=== PATIENT | male | born 1950 | race Caucasian/White ===

== ENCOUNTER 2016-10-15 13:01 | Day surgery (SDC) | payer MEDICARE ==
[~2016-10-15] VITALS: Ht 172.7 cm; Wt 80.0 kg
[~2016-10-15 13:01] MED LIST: 0.9% Sodium Chloride 1,000 ML IV SCH; ALBU8.5H2 INH; ASCO500C6 PO; ATOR20TA PO; BECL8.7A6 INHALATION; CALC500T9 PO; CHOL10008 PO; CITA20TA11 PO; DESO15CR25 TOP; FLUT16SP; GUAI600T2 PO; IBUP1CAP13 PO; IBUP1TAB10 PO; IBUP800T28 PO; IPRA3AMP IH; MULT-666 PO; PANT40TA3 PO; SULF1TAB35 PO; Sodium Biphos-Phos 133 mL Enema RECTAL PRN; Sodium Chloride LOK Flush 10 mL Syringe IV PRN; TERA10CA5 PO; fentaNYL-PF 50 mCg/mL 2 mL Inj IVPUSH PRN
[2016-10-15 13:49] VITALS: BP 122/83; PULSE 86; RESP 14; O2SAT 94
[2016-10-15 14:44] VITALS: BP 111/79; PULSE 91; RESP 16; O2SAT 93
[2016-10-15 15:13] VITALS: BP 113/79; PULSE 95; RESP 16; O2SAT 93
--- NOTE | 2016-10-15 15:29 | ENDO ---
[address] [address] ENDOSCOPY PROCEDURE PATIENT: ANA HARMON : 1950 MR#: [id number] ADMIT: 10/15/2016 JOB ID: [id number] DATE OF SERVICE: 10/15/2016 PREPROCEDURE DIAGNOSIS: Melena. POSTPROCEDURE DIAGNOSIS: Pancolitis, severe. PROCEDURE: Colonoscopy with biopsies. ENDOSCOPIST: Rad Hoover MD. MEDICATIONS: Versed 5 mg, fentanyl 100 mcg in incremental doses. INDICATIONS: The patient is a 66-year-old man who last underwent colonoscopy in 2007, which was reportedly normal. He was hospitalized in July with a one month history of melena. He also had hematuria. He underwent upper endoscopy during that hospitalization which demonstrated gastritis, and he was placed on Protonix. He was having explosive diarrhea, with blood on the toilet paper which then tapered off to only being blood on the toilet paper with bowel movements but no grossly melenic stools. He denied abdominal pain. After discussion of risks and benefits, he agreed to proceed with colonoscopy. FINDINGS: He had fairly severe confluent pancolitis involving the rectum as well. No mass lesions were identified. DESCRIPTION OF PROCEDURE: Procedural sedation was achieved. The patient was connected to hemodynamic monitoring, pulse oximetry, capnography. After digital rectal exam, the PCF-H180AL colonoscope was passed under visualization until the ileocecal valve was visualized and photo documented. At the hepatic flexure, the colon was very friable and had linear mucosal tears just from insufflation, so I did not want to push aggressively to get the scope beyond the ileocecal valve into the cecum or into the terminal ileum. Therefore, the appendiceal orifice was not visualized, and terminal ileoscopy was not performed, but the ileocecal valve was visualized. There was severe confluent pancolitis. There were no skip areas. There were ragged linear ulcerations with a small amount of active bleeding. No mass lesions were seen. The inflammatory process was involving the entire rectum as well. Because of the degree of inflammation, retroflexion was not performed. Random cold forceps biopsies were obtained throughout the colon, including from the ascending colon, transverse colon and sigmoid colon and sent for permanent pathology. The scope was withdrawn and the procedure terminated. He tolerated the entire procedure well. RECOMMENDATIONS: He will follow up with me in surgery clinic to go over his biopsy results in one week. He will then likely be referred urgently to Gastroenterology to start on treatment, as I suspect that he will be found to have ulcerative colitis.
--- NOTE | 2016-10-17 15:16 | PATH ---
SURGICAL PATHOLOGY Attending Physician:Fauzia Camilo CASE STATUS: Signed Out PATIENT NAME: ANA HARMON PID: [id number] : 1950 DATE COLLECTED:10/15/2016 00:00 SPECIMEN: Colon, Biopsy CLINICAL HISTORY: A: RANDOM COLON BIOPSIES MELENA, GASTRITIS, DIARRHEA COLONOSCOPY: SEVERE CONFLUENT PANCOLITIS FINAL DIAGNOSIS: 1.RANDOM COLON BIOPSIES: CHRONIC COLITIS WITH MODERATE ACTIVITY, SEE COMMENT. Negative for dysplasia and malignancy. ICD10 code K52.9 NOTE: This histologic pattern is suggestive of inflammatory bowel disease (ulcerative colitis). The differential diagnosis includes infection and medication toxicity. Clinical and endoscopic correlation is necessary for a definitive diagnosis. GROSS DESCRIPTION: The specimen is received in one formalin filled container labeled with the patient's name, sublabeled "random colon" and consists of 4 portions of tissue which aggregate to 0.4 x 0.4 x 0.2 CM. The specimen is entirely submitted in one cassette. 10/16/2016 [facility] MICRO DESCRIPTION: Sections are of colonic mucosal fragments, all of which are involved by an inflammatory process characterized by hypercellularity of the lamina propria (mononuclear cells, eosinophils, neutrophils), cryptitis and crypt abscesses, basal lymphoplasmacytosis, and crypt architecture distortion. No granulomas are seen. Please see diagnosis. ICD-9 CODES: CPT CODES: 1: 23179 Electronically Signed Out Carmelita Claire MD [facility] Pathology [facility] [address], [place] [address] Technical component performed at [facility], [address] [place] [address] Ave[address], [place], [address]
[2017-01-16] MEDS ORDERED: ATOR20TA PO (15:31)
[2017-01-16] MEDS ORDERED: PRE20 PO (15:31)
[2017-01-16] MEDS ORDERED: FLUT15.88 NS (15:31)
== END 2016-10-15 23:59 | disposition home or self-care (01) ==
LOC: END 13:01
PROVIDERS: ATTEND Student in an Organized Health Care Education/Training Program
DX: K92.1 Melena (principal); K52.9 Noninfective gastroenteritis and colitis, unspecified; J45.909 Unspecified asthma, uncomplicated; F41.9 Anxiety disorder, unspecified; N41.1 Chronic prostatitis; F32.9 Major depressive disorder, single episode, unspecified; B18.2 Chronic viral hepatitis C; M06.9 Rheumatoid arthritis, unspecified; Z87.891 Personal history of nicotine dependence
CPT/HCPCS: 45380; G0500; J2250; J7030

== ENCOUNTER 2017-01-19 10:15 | Day surgery (SDC) | payer MEDICARE ==
[~2017-01-19] VITALS: Ht 172.7 cm; Wt 81.0 kg
[~2017-01-19 10:15] MED LIST changes: +0.9% Sodium Chloride 1,000 ML IV PRN; -0.9% Sodium Chloride 1,000 ML IV SCH; -DESO15CR25 TOP; +FLUT15.88 NS; -FLUT16SP; -GUAI600T2 PO; -PANT40TA3 PO; +PRE20 PO; -SULF1TAB35 PO; -Sodium Biphos-Phos 133 mL Enema RECTAL PRN
[2017-01-19 12:08] VITALS: BP 110/77; PULSE 79; RESP 14; O2SAT 95
[2017-01-19 12:13] VITALS: BP 151/91; PULSE 79; RESP 14; O2SAT 94
[2017-01-19] MEDS ORDERED: ASPI325T32 PO (12:13)
[2017-01-19 12:23] VITALS: BP 134/91; PULSE 79; RESP 16; O2SAT 96
[2017-01-19 12:33] VITALS: BP 135/94; PULSE 74; RESP 14; O2SAT 96
--- NOTE | 2017-01-19 13:17 | PCM.ENDCOL ---
Colonoscopy Date of Service: Jan 19, 2017 Physician Oniel Rosales MD Pre Procedure Diagnosis: Colitis Post Procedure Dx & Findings: Colitis Procedure Colonoscopy PROCEDURE IN DETAIL: Prep fair Withdrawal time 10 minutes After unremarkable rectal examination the Olympus video colonoscope was inserted patient's anal canal and was advanced to cecum. Landmarks were identified including the ileocecal valve and appendiceal orifice. Scope advanced to the terminal ileum which showed normal villous structures without any ulcer or mass erosion. Advanced 10 cm. Scope was withdrawn systematically. Throughout the colon from the cecum to the rectum, evidence of redness edema decreased haustration noted and biopsies obtained. The inflammation or colitis on the right side seems to be mild. As we went further into the left colon, redness edema became less intense. The left side, we were able to see vascular patterns. That there is evidence of quiescent colitis in the rectum, the visualized colonic mucosa showed healthy shiny mucosa with normal healthy-appearing vasculature. In the rectum retroflexion was done which showed hemorrhoids. Anal canal was inspected carefully on the way out and hemorrhoids noted. Impression Colitis however. This is quite an unusual pattern. Rectum being spared and the inflammation seemed to get worse on the right side in the left. Terminal ileum was completely normal. Hemorrhoids Recommendation Await biopsies. Presedation Assessment Risks and Benefits Informed consent was obtained from the patient after all risks and benefits including but not limited to drug reaction, infection, pain, bleeding, perforation, as well as alternatives were discussed. Patient monitoring Continuous pulse oximetry, cardiac monitoring, blood pressure monitoring, IV access, and oxygen at 2L per nasal cannula. Periprocedural Fentanyl: Fentanyl 100mcg Incrementally Midazolam: Midazolam 4mg Incrementally Complications There were no periprocedural complications identified. Post Procedure Plan Post Procedure Recommendations 1. Restrict activities today. 2. Resume normal activities in the morning. 3. Resume medications. 4. Patient informed of normal post procedure side effects as bloating, drowsiness, blood streaking in the stool. 5. average risk CRCS. If colon polyps come back as: -Hyperplastic- can repeat colonoscopy in 10 years -Tubular adenoma- repeat colonoscopy in 5 years -Tubulovillous/villous adenoma- repeat colonoscopy in 3 years -If any dysplasia- return to clinic as soon as possible 6. Please don't hesitate to call me with any questions. Oniel Rosales MD Jan 19, 2017 13:16
--- NOTE | 2017-01-20 10:57 | PATH ---
SURGICAL PATHOLOGY Attending Physician:Oniel Rosales M.D. CASE STATUS: Signed Out PATIENT NAME: ANA HARMON PID: [id number] : 1950 DATE COLLECTED:01/19/2017 20:13 SPECIMEN: 1: Colon, Biopsy 2: Colon, Biopsy 3: Rectum, Biopsy CLINICAL HISTORY: RED SPLOTCHING 1). RANDOM COLON 2). LEFT COLON 3). RECTUM FINAL DIAGNOSIS: 1. Random Colon Biopsies: Diffuse severe chronic active colitis with cryptitis and crypt abscesses. Reactive epithelial changes, but negative for dysplasia and malignancy. 2. Left Colon Biopsies: Chronic colitis, focally active with focal crypt abscess. Reactive epithelial changes, but negative for dysplasia and malignancy. 3. Rectum Biopsy: Changes of chronic, focally active with focal cryptitis. Negative for dysplasia and malignancy. ICD10: K52.9 GROSS DESCRIPTION: The specimen is received in three formalin filled containers labeled with the patient's name. 1). The specimen is sublabeled "random colon" and consists of 5 portions of tissue which aggregate to 0.4 x 0.4 x 0.3 CM. The specimen is entirely submitted in cassette 1A. 2). The specimen is sublabeled "left colon" and consists of 3 portions of tissue which aggregate to 0.3 x 0.3 x 0.2 CM. The specimen is entirely submitted in cassette 2A. 3). The specimen is sublabeled "rectum" and consists of 2 portions of tissue which aggregate to 0.3 x 0.3 x 0.2 CM. The specimen is entirely submitted in cassettes 3A. 01/19/2017 [facility] ICD-9 CODES: CPT CODES: 1: 13448 2: 41850 3: 61227 Electronically Signed Out Ron Javed MD [facility] Pathology [facility] [address] [facility], [place] [address] Technical component performed at [facility], [facility] [address], [place], [address]
== END 2017-01-19 23:59 | disposition home or self-care (01) ==
LOC: END 10:15
PROVIDERS: ATTEND Internal Medicine
DX: K52.9 Noninfective gastroenteritis and colitis, unspecified (principal); K62.89 Other specified diseases of anus and rectum; K64.8 Other hemorrhoids; J45.909 Unspecified asthma, uncomplicated; F41.9 Anxiety disorder, unspecified; N41.1 Chronic prostatitis; F32.9 Major depressive disorder, single episode, unspecified; Z87.440 Personal history of urinary (tract) infections; Z79.52 Long term (current) use of systemic steroids; Z79.51 Long term (current) use of inhaled steroids
CPT/HCPCS: 45380; G0500; J7030

== ENCOUNTER 2017-05-18 07:10 | Day surgery (SDC) | payer MEDICARE ==
[~2017-05-18] VITALS: Ht 172.7 cm; Wt 79.8 kg
[~2017-05-18 07:10] MED LIST changes: -0.9% Sodium Chloride 1,000 ML IV PRN; +0.9% Sodium Chloride 1,000 ML IV SCH; +ASPI325T32 PO; -ATOR20TA PO; +BUDE3CAP7 PO; -CALC500T9 PO; -FLUT15.88 NS; -IBUP1CAP13 PO; -IBUP1TAB10 PO; -IPRA3AMP IH; +MESA1.2T2 PO; +NITR100 PO; -PRE20 PO
[2017-05-18 07:40] VITALS: BP 123/86; PULSE 79; RESP 16; O2SAT 94
[2017-05-18 08:31] VITALS: BP 108/71; PULSE 79; RESP 16; O2SAT 93
--- NOTE | 2017-05-18 08:31 | PCM.ENDCOL ---
Colonoscopy Date of Service: May 18, 2017 Physician Oniel Rosales MD Indication for Procedure Ulcerative colitis Post Procedure Dx & Findings: quiescent colitis rectal polyp hemorrhoids Procedure Colonoscopy PROCEDURE IN DETAIL: Prep adequate Withdrawal time 13 minutes After unremarkable rectal examination the Olympus video colonoscope was inserted patient's anal canal and was advanced to cecum. Landmarks were identified including the ileocecal valve and appendiceal orifice. Scope was withdrawn systematically. Visualized colonic mucosa showed slightly decreased vasculature with some edema. However an significant portion of the colonic mucosa show healthy shiny mucosa with normal healthy-appearing vasculatures. Random biopsies were obtained from the cecum to the rectum. In the rectum, there was a 1 mm polyp was removed completely using cold forceps. In the rectum retroflexion was done which showed hemorrhoids. Anal canal was inspected carefully on the way out and hemorrhoids noted. Impression quiescent colitis rectal polyp Hemorrhoids History of ulcerative colitis 4 years ago. Recommendation Follow up in GI clinic. Presedation Assessment Risks and Benefits Informed consent was obtained from the patient after all risks and benefits including but not limited to drug reaction, infection, pain, bleeding, perforation, as well as alternatives were discussed. Patient monitoring Continuous pulse oximetry, cardiac monitoring, blood pressure monitoring, IV access, and oxygen at 2L per nasal cannula. Periprocedural Fentanyl: Fentanyl 50mcg Incrementally Midazolam: Midazolam 4mg Incrementally Complications There were no periprocedural complications identified. Post Procedure Plan Post Procedure Recommendations 1. Restrict activities today. 2. Resume normal activities in the morning. 3. Resume medications. 4. Patient informed of normal post procedure side effects as bloating, drowsiness, blood streaking in the stool. 5. average risk CRCS. If colon polyps come back as: -Hyperplastic- can repeat colonoscopy in 10 years -Tubular adenoma- repeat colonoscopy in 5 years -Tubulovillous/villous adenoma- repeat colonoscopy in 3 years -If any dysplasia- return to clinic as soon as possible 6. Please don't hesitate to call me with any questions. Oniel Rosales MD May 18, 2017 08:30
[2017-05-18 08:41] VITALS: BP 98/64; PULSE 75; RESP 16; O2SAT 94
[2017-05-18 08:50] VITALS: BP 98/64; PULSE 87; RESP 16; O2SAT 95
[2017-05-18 08:58] VITALS: BP 119/80; PULSE 70; RESP 16; O2SAT 95
--- NOTE | 2017-05-20 09:43 | PATH ---
SURGICAL PATHOLOGY Attending Physician:Oniel Rosales M.D. CASE STATUS: Signed Out PATIENT NAME: ANA HARMON PID: [id number] : 1950 DATE COLLECTED:05/18/2017 14:59 SPECIMEN: 1: Colon, Biopsy 2: Rectum, Biopsy CLINICAL HISTORY: PHX OF ULCERATIVE COLITIS 1). RANDOM COLON BIOPSY 2). RECTAL POLYP X1 FINAL DIAGNOSIS: 1.RANDOM COLON BIOPSY: PATCHY CHRONIC COLITIS, MILDLY ACTIVE WITH ACUTE CRYPTITIS. Negative for dysplasia and malignancy. 2.RECTAL POLYP, BIOPSY: RECTAL MUCOSA WITH NO DIAGNOSTIC ABNORMALITY. Negative for serrated lesion, adenoma, dysplasia and malignancy. ICD10 K51.9 GROSS DESCRIPTION: The specimen is received in two formalin filled containers labeled with the patient's name. 1). The specimen is labeled "random colon" and consists of multiple portions of tissue which aggregate to 0.3 x 0.3 x 0.2 CM. The specimen is entirely submitted in cassette 1A. 2). The specimen is labeled "rectal polyp" and consists of a 0.2 x 0.2 x 0.2 CM portion of tissue which is entirely submitted in cassette 2A. 05/18/2017DC MICRO DESCRIPTION: See diagnosis. ICD-9 CODES: CPT CODES: 1: 18391 2: 36820 Electronically Signed Out Misael Walter MD, PhD [facility] Pathology [facility], [place] [address] Technical component performed at [facility], [address] [place] [address] Ave[address], [place], [address]
== END 2017-05-18 23:59 | disposition home or self-care (01) ==
LOC: END 07:10
PROVIDERS: ATTEND Internal Medicine
DX: K52.89 Other specified noninfective gastroenteritis and colitis (principal); K64.9 Unspecified hemorrhoids; K62.1 Rectal polyp; J45.909 Unspecified asthma, uncomplicated; F41.8 Other specified anxiety disorders; N41.1 Chronic prostatitis; R97.20 Elevated prostate specific antigen [PSA]; Z87.440 Personal history of urinary (tract) infections
CPT/HCPCS: 45380; G0500; J2250; J3010; J7030